=== PATIENT | female | born 1955 | race Caucasian/White ===

== ENCOUNTER → 2018-06-02 | Outpatient (CLI) | payer MEDICARE, OTHER ==
[~2018-06-02] MED LIST: ASPIRIN 81M81 MG/TA2 PO
== END ==
LOC: MC.RAD 12:36
DX: N63.23 Unspecified lump in the left breast, lower outer quadrant (principal); Z98.890 Other specified postprocedural states
CPT/HCPCS: G0279

== ENCOUNTER → 2018-07-04 | Outpatient (CLI) | payer MEDICARE, OTHER ==
[~2018-07-04] MED LIST changes: +GLUCOPHAGE500 MG/TAB PO; +IMDUR 30MG30 MG/TAB PO; +LUTEIN20 M1 PO; +MEVACOR 20M20 MG/TAB PO; +NEURONTIN300 MG/CAP PO; +PRILOSEC 20MG20 MG PO; +TOPROL XL 25MG25 MG PO; +VITAMIN D 1001000 IU PO; +XALATAN EYE DROPS OU
== END ==
LOC: COL.RAD 12:10
DX: C50.512 Malignant neoplasm of lower-outer quadrant of left female breast (principal); Z98.890 Other specified postprocedural states
CPT/HCPCS: A9541

== ENCOUNTER 2018-07-05 06:38 | Day surgery (SDC) | payer MEDICARE, OTHER ==
[2018-07-05] VITALS (10 sets, daily range): BP systolic 150–170; BP diastolic 67–72; PULSE 72–96; TEMP 97.6–98.4
[~2018-07-05] VITALS: Ht 172.7 cm; Wt 93.6 kg
[~2018-07-05 06:38] MED LIST changes: -GLUCOPHAGE500 MG/TAB PO; -IMDUR 30MG30 MG/TAB PO; -LUTEIN20 M1 PO; -MEVACOR 20M20 MG/TAB PO; -NEURONTIN300 MG/CAP PO; -PRILOSEC 20MG20 MG PO; -TOPROL XL 25MG25 MG PO; -VITAMIN D 1001000 IU PO; -XALATAN EYE DROPS OU
[2018-07-05] MEDS ORDERED: GLUCOPHAGE500 MG/TAB PO ×2 (08:12→08:13)
[2018-07-05] MEDS ORDERED: NEURONTIN300 MG/CAP PO (08:13)
[2018-07-05] MEDS ORDERED: TOPROL XL 25MG25 MG PO (08:14)
[2018-07-05] MEDS ORDERED: IMDUR 30MG30 MG/TAB PO (08:14)
[2018-07-05] MEDS ORDERED: MEVACOR 20M20 MG/TAB PO (08:15)
[2018-07-05] MEDS ORDERED: PRILOSEC 20MG20 MG PO (08:15)
[2018-07-05] MEDS ORDERED: VITAMIN D 1001000 IU PO (08:16)
[2018-07-05] MEDS ORDERED: LUTEIN20 M1 PO (08:16)
[2018-07-05] MEDS ORDERED: XALATAN EYE DROPS OU (08:17)
[2018-07-06 03:21] VITALS: BP 142/69; PULSE 80; TEMP 98
[2018-07-06 07:31] VITALS: BP 139/73; PULSE 78; TEMP 98.4
== END 2018-07-06 09:15 | disposition home or self-care (01) ==
LOC: SDCO 06:38 → SURG 13:40 → SDCO 07-06 09:15
DX: C50.512 Malignant neoplasm of lower-outer quadrant of left female breast (principal); Z17.0 Estrogen receptor positive status [ER+]; Z80.3 Family history of malignant neoplasm of breast; I10 Essential (primary) hypertension; E11.9 Type 2 diabetes mellitus without complications; Z79.84 Long term (current) use of oral hypoglycemic drugs; E78.00 Pure hypercholesterolemia, unspecified
CPT/HCPCS: OP; J0690; J1100; J2250; J2405; J2704; J3010; J7120; Q9968

== ENCOUNTER 2018-07-14 07:48 | Day surgery (SDC) | payer MEDICARE, OTHER ==
[~2018-07-14] VITALS: Ht 172.7 cm; Wt 93.1 kg
[~2018-07-14 07:48] MED LIST changes: +GLUCOPHAGE500 MG/TAB PO; +IMDUR 30MG30 MG/TAB PO; +LUTEIN20 M1 PO; +MEVACOR 20M20 MG/TAB PO; +NEURONTIN300 MG/CAP PO; +PRILOSEC 20MG20 MG PO; +TOPROL XL 25MG25 MG PO; +VITAMIN D 1001000 IU PO; +XALATAN EYE DROPS OU
[2018-07-14 08:07] VITALS: BP 166/80; PULSE 72; TEMP 97.7
[2018-07-14 10:26] VITALS: BP 142/66; PULSE 72; TEMP 98
--- NOTE | 2018-07-14 10:26 | NUR ---
The patient is wheeled to [place] [facility] via cart by OR staff. The patient's vital signs are stable and the dressing is c/d/i. Report is obtained. The patient states she would like to rest some before she attempts to eat or drink anything. The call light is within reach and the patient's is at the bedside. Will continue to monitor.
[2018-07-14 10:41] VITALS: BP 152/64; PULSE 67
--- NOTE | 2018-07-14 10:41 | NUR ---
The patient's vital signs are stable. The patient is still sleepy at this time and states she would like to rest some more before she attempts to eat or drink anything. The patient denies any complaints of pain or nausea at this time. The patient's is at the bedside and the call light is within reach. Will continue to monitor.
[2018-07-14 10:56] VITALS: BP 145/68; PULSE 70
--- NOTE | 2018-07-14 10:56 | NUR ---
The patient's vital signs are stable. The patient requests a muffin, apple sauce, and some water which is brought to her at this time. The patient denies any complaints of pain or nausea. The call light is within reach and the patient's is at the bedside. Will continue to monitor.
[2018-07-14 11:11] VITALS: BP 155/71; PULSE 73
--- NOTE | 2018-07-14 11:11 | NUR ---
The patient's vital signs are stable. The patient tolerated the muffin, apple sauce, and water. The patient ambulates to the restroom and back and is able to urinate. The patient states she would like a pain pill before she is discharged. The patient changes into her personal clothes to be discharged.
[2018-07-14 11:41] VITALS: BP 151/61; PULSE 73
--- NOTE | 2018-07-14 11:41 | NUR ---
The patient's vital signs are stable. The patient is given 1000mg of Tylenol per request. The patient states that her surgical site is sore with movement. The dressing is c/d/i. The discharge instructions will be reviewed with the patient and her .
--- NOTE | 2018-07-14 11:48 | NUR ---
The discharge instructions are reviewed with the patient and her and all questions are answered. The IV is removed and the tip is intact and a dressing is applied.
--- NOTE | 2018-07-14 11:50 | NUR ---
The patient is wheeled to the visitor entrance via wheelchair to be discharged home via personal vehicle by her . The patient is sent home with her discharge instructions and follow-up appointment card.
== END 2018-07-14 11:50 | disposition home or self-care (01) ==
LOC: SDCO 07:48
DX: C50.512 Malignant neoplasm of lower-outer quadrant of left female breast (principal); Z17.0 Estrogen receptor positive status [ER+]; I10 Essential (primary) hypertension; E78.00 Pure hypercholesterolemia, unspecified; E11.9 Type 2 diabetes mellitus without complications; K21.9 Gastro-esophageal reflux disease without esophagitis; E11.39 Type 2 diabetes mellitus with other diabetic ophthalmic complication; H42 Glaucoma in diseases classified elsewhere; Z79.84 Long term (current) use of oral hypoglycemic drugs; Z90.710 Acquired absence of both cervix and uterus; Z90.49 Acquired absence of other specified parts of digestive tract; Z91.040 Latex allergy status; Z88.0 Allergy status to penicillin; Z91.013 Allergy to seafood; Z88.8 Allergy status to other drugs, medicaments and biological substances; Z87.891 Personal history of nicotine dependence; Z86.73 Personal history of transient ischemic attack (TIA), and cerebral infarction without residual deficits
CPT/HCPCS: J0690; J2250; J2405; J2704; J3010; J7120

== ENCOUNTER → 2019-11-27 | Outpatient (CLI) | payer MEDICARE, OTHER | LOC: MC.RAD 08:53 | DX: R07.89 Other chest pain (principal); L98.9 Disorder of the skin and subcutaneous tissue, unspecified ==